=== PATIENT | female | born 1990 | race Caucasian/White ===

== ENCOUNTER 2016-03-10 22:31 | Outpatient (CLI) | payer OTHER ==
[~2016-03-10] VITALS: Ht 157.5 cm; Wt 98.4 kg
[~2016-03-10 22:31] MED LIST: IBUPROFEN400 MG PO; IRON TABLETS325 MG PO; MEDROL 4MG. DOSE4 MG PO; NOMEDS; PRENATAL FORTE PO; ZITHROMAX Z PA250 MG PO
[2016-03-10 22:40] VITALS: BP 148/83
[2016-03-10 23:15] LABS: URINE BILIRUBIN - DIPSTICK NEGATIVE (NEG); URINE BLOOD TRACE-INTACT (NEG)
[2016-03-10 23:16] LABS: URINE SQUAMOUS CELLS OCC #/hpf (0-5)
== END 2016-03-11 01:40 | disposition home or self-care (01) ==
LOC: OBOUT 22:31 → OB 22:34 → OBOUT 03-11 01:40
PROVIDERS: Obstetrics & Gynecology
DX: O60.03 Preterm labor without delivery, third trimester (principal); Z3A.37 37 weeks gestation of pregnancy

== ENCOUNTER 2016-03-23 00:15 | Inpatient (IN) | payer OTHER ==
[~2016-03-23] VITALS: Ht 157.5 cm; Wt 98.0 kg
[2016-03-23 05:13] VITALS: BP 118/68
[2016-03-23 06:24] LABS: HEMOGLOBIN 15.1 g/dL (12.2-16.2)
[2016-03-23 06:25] LABS: LYMPH # 1.4 K/mm3 (0.7-4.5); LYMPH % 20.2 % (10-50.0)
[2016-03-23 07:06] LABS: ABO BLOOD TYPE O
[2016-03-23 07:07] LABS: RH BLOOD TYPE POSITIVE
--- NOTE | 2016-03-23 08:36 | LABOR NOTE ---
Laboring Subjective Subjective Date 03/23/16 Time 0832 Subjective: Pt is having regular contractions Laboring Objective Objective NST: Reactive Contractions: q 2-3 minutes Cervical dilation: 4-5 Effacement: 75% Station: -1 Membranes are: Artificially ruptured (with thick meconium) Comment: I ruptured her membranes and there was thick meconium. It was brown in color. Fetus monitoring? Yes Type: External Laboring Assessment Assessment Progressing? Yes Cephalopelvic disproportion? No Problem List: 1. Delivery normal Laboring Plan Plan Anethesia for epidural? Yes Continue to labor down? Yes Plan for ? No Continue to monitor? Yes Start pushing? No Comment: We have called Dr. Deluna and we will have him present at the delivery since she has thick meconium. at 0805
--- NOTE | 2016-03-23 09:12 | LABOR NOTE ---
Laboring Subjective Subjective Date 03/23/16 Time 0900 Subjective: Pt is having regular contractions Laboring Objective Objective NST: Reactive Contractions: q 2-3 minutes Cervical dilation: 5 Effacement: 90% Station: -1 Membranes are: Artificially ruptured (with thick meconium) Fetus monitoring? Yes Type: Internal Comment: I inserted an IUPC and clip. We will start an amnioinfusion given her thick meconium. Her oxytocin has been turned down from 3 milliunits to 1 milliunit. Laboring Assessment Assessment Progressing? Yes Cephalopelvic disproportion? No Problem List: 1. Delivery normal Laboring Plan Plan Anethesia for epidural? Yes Continue to labor down? Yes Plan for ? No Continue to monitor? Yes Start pushing? No Comment: She is just about to receive an epidural. at 0911
--- NOTE | 2016-03-23 10:42 | LABOR NOTE ---
Laboring Subjective Subjective Date 03/23/16 Time 1040 Subjective: Pt is having regular contractions Laboring Objective Objective NST: Reactive Contractions: q 2-3 minutes Cervical dilation: 9 (fully) Effacement: 100% Station: 0 Membranes are: Artificially ruptured (with thick meconium) Fetus monitoring? Yes Type: Internal Laboring Assessment Assessment Progressing? Yes Cephalopelvic disproportion? No Problem List: 1. Delivery normal Laboring Plan Plan Anethesia for epidural? Yes Continue to labor down? Yes Plan for ? No Continue to monitor? Yes Start pushing? No Comment: allow head to come down some more and then start pushing at 1048
--- NOTE | 2016-03-23 12:17 | Delivery Note ---
Delivery note Delivery date: 03/23/16 Delivery time: 1202 Anesthesia: Obdulio Eliza, epidural Was labor medically induced? No Gestational age in weeks: 39 weeks Days: 2 days Delivery prior to 39 weeks? No Sex: male score at one minute: 5 at 5 minutes: 9 Type of suction: delee AF: Thick meconium LAC or MLE: LAC (1st degree) Delivery procedure: Normal Delivery Delivery of placenta: spontaneous Clinical note She is a 25-year-old 2 para 1 who is 39 and 2 weeks gestational age. She 's had a previous 8-1/2 pound baby and as result of that we elected to augment her labor. She was found to be 4 cm dilated and was having pressure and occasional contractions. She was started on IV oxytocin had her membranes ruptured. There was thick meconium when I ruptured the membranes. Under labor epidural she progressed to full dilation and delivered spontaneously a liveborn male child at 12:02 PM in the afternoon of March 23, 2016. On delivery the head the oropharynx and nasopharynx were DeLee suction. I retrieved about a cc of meconium-stained fluid. There was a tight nuchal cord and I doubly clamped this and cut the cord. I then was able to deliver the anterior shoulder and the rest of the infant's body atraumatically. The was then handed off to Dr. Walters who assigned Apgars of 5 at 1 minute and 9 at 5 minutes. We then obtained cord blood as well as cord pH. The patient received IV oxytocin and using gentle traction on the cord and countertraction on the fundus I was able to easily deliver the placenta intact. It had a normal three-vessel cord. She had a small first-degree laceration that was repaired with 2 interrupted 3-0 Vicryl Rapide sutures. She has O positive blood, she is rubella immune and is group B streptococcus negative. She plans to bottlefeed. Her vegetable packer is Dr. Deluna. Estimated blood loss was approximately 400 mL. at 6620
[2016-03-23 19:49] VITALS: BP 108/65
[2016-03-24 06:44] LABS: HEMOGLOBIN 11.1 g/dL (12.2-16.2)
--- NOTE | 2016-03-24 07:52 | ACUTE CARE PROGRESS NOTE (QUA) ---
Progress Notes Subjective Date 03/24/16 Time 0750 Note She is doing very well this morning. She is eating and drinking and ambulating. She is bottlefeeding. Her lochia is normal. Patient/family reports: feeling better, no complaints Objective Findings Last VS-Temp:98.1 B/P:108/65 Pulse:75 Resp:16 SaO2: Last weight lbs:216 oz:0 [id number] Method:Stated Exam General appearance: normal appearance, alert, awake, no acute distress Reviewed: vital signs, lab results Assessment/Plan Problem List 1. Delivery normal Patient condition Improving, Stable Plan: continue current care This inpt stay is expected to cross 2 MNs from start of care Yes Comments: She is doing very well this morning. We will plan to send her home tomorrow. at 0751
[2016-03-24 11:40] VITALS: BP 108/70
[2016-03-24 20:00] VITALS: BP 130/80
--- NOTE | 2016-03-25 08:00 | ACUTE CARE PROGRESS NOTE (QUA) ---
Progress Notes Subjective Date 03/25/16 Time 0759 Note She is doing very well this morning. She is eating and drinking and ambulating. She is bottlefeeding. Her lochia is normal. Patient/family reports: feeling better, no complaints Objective Findings Last VS-Temp:97.9 B/P:130/80 Pulse:64 Resp:18 SaO2: Last weight lbs:216 oz:0 [id number] Method:Stated Exam General appearance: normal appearance, alert, awake, no acute distress Reviewed: vital signs, lab results Assessment/Plan Problem List 1. Delivery normal Patient condition Improving, Stable Plan: continue current care, initiate discharge plan This inpt stay is expected to cross 2 MNs from start of care Yes Comments: She is doing very well this morning and we will plan to send her home. at 0800
--- NOTE | 2016-03-25 08:02 | Discharge Summary ---
Discharge Summary Admission date: 03/23/16 Discharge date: 03/25/16 Discharge diagnoses: Term , spontaneous vaginal delivery Clinical note: She is a 25-year-old 2 now para 2 who was 39+ weeks gestational age. She was having a few contractions and was found before 7 m dilated. As result of that she was augmented. Course in hospital: She progressed to full dilation and delivered spontaneously a liveborn male child at 12:02 PM in the afternoon of March 23, 2016. The baby was a liveborn male child weighing 8 lbs. 8 oz. with Apgars of 5 at 1 minute and 9 at 5 minutes. He was 19 inches long. He had thick meconium when I ruptured the membranes. She is bottlefeeding. She has O positive blood, she is rubella immune and was group B streptococcus negative. Her aircraft engine specialist is Dr. Deluna. Laboratory Tests 03/24/16 0605: Hgb 11.1 L, Hct 33.2 L 03/23/16 1200: Cord Blood pH 7.22 L 03/23/16 0505: MCH 29.3 03/23/16 0505: WBC 6.7, RBC 5.16, Hgb 15.1, Hct 44.5, MCV 86.2, RDW 15.5, Plt Count 183, Gran % 75.4, Gran # 5.1, Lymphocytes % 20.2, Monocytes % 4.4, Lymphocytes # 1.4, Monocytes # 0.3, PUBS MCHC 33.9, Antibody Screen NEGATIVE, Miscellaneous Test POSITIVE Plans for ongoing care: She is discharged home to follow-up with me in approximately 2 weeks' time. Discharge medications We will continue with her vitamins and iron. She was given a prescription for Motrin 400 mg. DC/follow-up instructions She was given the usual instructions with respect to limiting her activity, driving and sexual activity. Condition at discharge Stable and improved at 0802
[2016-03-25] MEDS ORDERED: MOTRIN 400MG.400 MG PO (08:04)
== END 2016-03-25 10:45 | disposition home or self-care (01) | DRG 775 ==
LOC: OB 00:15
PROVIDERS: Nurse Practitioner Obstetrics & Gynecology
PROC: 0HQ9XZZ Repair Perineum Skin, External Approach (ICD-10-PCS; principal; 2016-03-23)
PROC: 10E0XZZ Delivery of Products of Conception, External Approach (ICD-10-PCS; 2016-03-23)
DX: O70.0 First degree perineal laceration during delivery (principal); O69.81X0 Labor and delivery complicated by cord around neck, without compression, not applicable or unspecified; Z3A.39 39 weeks gestation of pregnancy; Z37.0 Single live birth
CPT/HCPCS: C1758; Q2038